=== PATIENT | female | born 1965 | race Two or more races ===

== ENCOUNTER 2017-01-12 06:17 | Emergency (ER) | payer SELFPAY ==
[~2017-01-12] VITALS: Ht 165.1 cm; Wt 59.0 kg
[2017-01-12 08:49] VITALS: BP 130/83
== END 2017-01-12 09:25 | disposition home or self-care (01) ==
LOC: ER 06:17 → EDBD 06:17 → ER 09:25
DX: S16.1XXA Strain of muscle, fascia and tendon at neck level, initial encounter (principal); V43.52XA Car driver injured in collision with other type car in traffic accident, initial encounter; Y93.89 Activity, other specified; Y99.8 Other external cause status; Y92.89 Other specified places as the place of occurrence of the external cause
CPT/HCPCS: 72050